=== PATIENT | female | born 1975 | race African-American/Black ===

== ENCOUNTER 2017-12-07 07:01 | Emergency (ER) | payer OTHER ==
[~2017-12-07] VITALS: Ht 149.9 cm; Wt 74.3 kg
[2017-12-07] MEDS ORDERED: CLEOCIN300 MG PO (09:09)
[2017-12-07 10:07] VITALS: BP 162/97
== END 2017-12-07 10:11 | disposition home or self-care (01) ==
LOC: EME 07:01
PROC: 0CQ0XZZ Repair Upper Lip, External Approach (ICD-10-PCS; principal; 2017-12-07)
DX: S03.2XXA Dislocation of tooth, initial encounter (principal); S01.511A Laceration without foreign body of lip, initial encounter; S00.11XA Contusion of right eyelid and periocular area, initial encounter; H57.11 Ocular pain, right eye; V74.6XXA Passenger on bus injured in collision with heavy transport vehicle or bus in traffic accident, initial encounter; Y92.411 Interstate highway as the place of occurrence of the external cause; F17.200 Nicotine dependence, unspecified, uncomplicated
CPT/HCPCS: 70450; 70486; 72125